=== PATIENT | male | born 1990 | race Caucasian/White ===

== ENCOUNTER 2020-01-14 03:12 | Emergency (ER) | payer MEDICAID ==
[~2020-01-14] VITALS: Ht 160 cm; Wt 81.2 kg
[2020-01-14 03:26] VITALS: Ht 160 cm; Wt 81.2 kg
[2020-01-14 04:12] VITALS: BP 150/77
== END 2020-01-14 04:12 | disposition home or self-care (01) ==
LOC: ED 03:12
DX: B02.9 Zoster without complications (principal)

== ENCOUNTER 2020-02-26 19:31 | Emergency (ER) | payer MEDICAID ==
[~2020-02-26] VITALS: Ht 167.6 cm; Wt 81.2 kg
[2020-02-26 19:39] VITALS: Ht 167.6 cm; Wt 81.2 kg
[2020-02-26 21:30] VITALS: BP 106/78
== END 2020-02-26 21:30 | disposition home or self-care (01) ==
LOC: ED 19:31
DX: S63.697A Other sprain of left little finger, initial encounter (principal); W10.8XXA Fall (on) (from) other stairs and steps, initial encounter; Y93.89 Activity, other specified; Y92.89 Other specified places as the place of occurrence of the external cause; Y99.8 Other external cause status
CPT/HCPCS: Q0092